=== PATIENT | male | born 1990 | race Caucasian/White ===

== ENCOUNTER 2017-10-12 00:03 | Observation (INO) | payer OTHER ==
[2017-10-12] VITALS (9 sets, daily range): BP systolic 93–129; BP diastolic 55–69; PULSE 74–113; RESP 16–20; TEMP 98–100.3; O2SAT 97–100
[~2017-10-12] VITALS: Ht 175.3 cm; Wt 66.5 kg
[~2017-10-12 00:03] MED LIST: CEPH500C3 PO
[2017-10-12] MEDS ORDERED: ONDANSETRON HCL 4 MG/2 ML VIAL IV ONE ×2 (01:15→02:45)
[2017-10-12] MEDS ORDERED: SODIUM CHLORIDE 0.9% FLUSH 10 ML FLUSH IV FLUSH PRN ×2 (01:15→03:45)
--- NOTE | 2017-10-12 01:16 | PD ---
HPI Chief Complaint: GI Complaint Time Seen by Provider: 01:07 Travel History International Travel<30 days: No Contact w/Intl Traveler<30days: No Traveled to known affect area: No History of Present Illness HPI The patient is a 27-year-old male that complains of nausea, vomiting and diarrhea since 8:30 PM tonight. He denies any foreign travel, well water ingestion, recent antibiotics her bowel problems such as regional enteritis or ulcerative colitis. He denies any blood in the stool or vomitus. He denies any fever. PFSH Past Medical History Anemia: Yes (CHILDHOOD) Anxiety: Yes Depression: Yes Chest Pain: Yes Diabetes: No Diminished Hearing: No Headaches: Yes Psychiatric: Yes (HBS INPT X1 ? PTSD PT DENIES PTSD ON 10/12/17) Immunizations Current: Yes ("I'VE GOTTEN ALMOST EVERY SHOT POSSIBLE WHILE IN THE [employer]") Seizures: No Sleep Apnea: Yes (OBSTRUCTIVE SLEEP APNEA, NO CPAP USE) Thyroid Disease: No Ulcer: No Tetanus Vaccination: < 5 Years Influenza Vaccination: No Ectopic : No Ovarian Cysts: No Dilation and Curettage (D&C): No Tubal Ligation: No Past Surgical History Section: No Hysterectomy: No Oral Surgery: Yes (WISDOM TEETH REMOVED) Other Surgery: Yes (2010) Social History Alcohol Use: Yes ("MAYBE ONE A MONTH" STATED 10/12/17) Tobacco Use: Yes (/2 PPD) Substance Use: No Allergies-Medications (Allergen,Severity, Reaction): Coded Allergies: animal dander (Unverified Allergy, Severe, 10/12/17) house dust (Unverified Allergy, Severe, 10/12/17) Reported Meds & Prescriptions Reported Meds & Active Scripts Active No Active Prescriptions or Reported Medications Review of Systems Except as stated in HPI: all other systems reviewed are Neg Physical Exam Narrative GENERAL: The patient is alert, oriented 3, moderately dehydrated appearing in moderate apparent distress with his midline epigastric discomfort and generalized abdominal cramping. His vital signs show heart rate of 110 but are otherwise normal. SKIN: Focused skin assessment warm/dry. HEAD: Atraumatic. Normocephalic. EYES: Pupils equal and round. No scleral icterus. No injection or drainage. ENT: No nasal bleeding or discharge. Mucous membranes pink and slightly dry. NECK: Trachea midline. No JVD. CARDIOVASCULAR: Regular rate and rhythm. No murmur appreciated. RESPIRATORY: No accessory muscle use. Clear to auscultation. Breath sounds equal bilaterally. GASTROINTESTINAL: Abdomen soft, with slight tenderness in the midline epigastrium to direct palpation, nondistended. Hepatic and splenic margins not palpable. No guarding or rebound is present. MUSCULOSKELETAL: No obvious deformities. No clubbing. No cyanosis. No edema. NEUROLOGICAL: Awake and alert. No obvious cranial nerve deficits. Motor grossly within normal limits. Normal speech. PSYCHIATRIC: Appropriate mood and affect; insight and judgment normal. Data Data Last Documented VS Vital Signs Date Time Temp Pulse Resp B/P (MAP) Pulse Ox O2 Delivery O2 Flow Rate FiO2 10/12/17 03:32 100 10/12/17 02:09 16 97 Room Air 10/12/17 00:07 98.0 Orders Orders Complete Blood Count With Diff (10/12/17 01:12) Comprehensive Metabolic Panel (10/12/17 01:12) Lipase (10/12/17 01:12) Urinalysis - C+S If Indicated (10/12/17 01:12) Iv Access Insert/Monitor (10/12/17 01:12) Ecg Monitoring (10/12/17 01:12) Oximetry (10/12/17 01:12) Sodium Chloride 0.9% Flush (Ns Flush) (10/12/17 01:15) Ondansetron Inj (Zofran Inj) (10/12/17 01:15) Sodium Chlor 0.9% 1000 Ml Inj (Ns 1000 M (10/12/17 01:15) Ondansetron Inj (Zofran Inj) (10/12/17 02:45) Sodium Chlor 0.9% 1000 Ml Inj (Ns 1000 M (10/12/17 02:45) Piperacil-Tazo 4.5 Gm Premix (Zosyn 4.5 (10/12/17 04:00) Trimethobenzamide Inj (Tigan Inj) (10/12/17 03:45) Place In Observation (10/12/17 ) Vital Signs (Adult) Q4H (10/12/17 03:32) Activity Oob Ad Sonali (10/12/17 03:32) Intake + Output MARIO.QSHIFT (10/12/17 03:32) Diet Regular Basic (10/12/17 Breakfast) Sodium Chlor 0.9% 1000 Ml Inj (Ns 1000 M (10/12/17 03:32) Sodium Chloride 0.9% Flush (Ns Flush) (10/12/17 03:45) Sodium Chloride 0.9% Flush (Ns Flush) (10/12/17 09:00) Ondansetron Inj (Zofran Inj) (10/12/17 03:45) Comprehensive Metabolic Panel (10/13/17 06:00) Complete Blood Count With Diff (10/13/17 06:00) Scd Bilateral/Knee High MARIO.BID (10/12/17 03:32) Joseph Bilateral/Knee High MARIO.QSHIFT (10/12/17 03:34) Acetaminophen (Tylenol) (10/12/17 03:45) Acetamin-Hydrocod 325-5 Mg ([place] 5-325 (10/12/17 03:45) Morphine Inj (Morphine Inj) (10/12/17 03:45) Docusate Sodium-Senna (Loly-Colace) (10/12/17 09:00) Magnesium Hydroxide Liq (Milk Of Magnesi (10/12/17 03:45) Sennosides (Senokot) (10/12/17 03:45) Bisacodyl Supp (Dulcolax Supp) (10/12/17 03:45) Lactulose Liq (Lactulose Liq) (10/12/17 03:45) Admit Order (Ed Use Only) (10/12/17 03:34) Metoclopramide Inj (Reglan Inj) (10/12/17 03:45) Labs Laboratory Tests Test 10/12/17 01:14 10/12/17 02:45 White Blood Count 16.2 TH/MM3 Red Blood Count 6.58 MIL/MM3 Hemoglobin 18.3 GM/DL Hematocrit 54.6 % Mean Corpuscular Volume 83.1 FL Mean Corpuscular Hemoglobin 27.8 PG Mean Corpuscular Hemoglobin Concent 33.5 % Red Cell Distribution Width 12.8 % Platelet Count 301 TH/MM3 Mean Platelet Volume 8.7 FL Neutrophils (%) (Auto) 81.3 % Lymphocytes (%) (Auto) 12.1 % Monocytes (%) (Auto) 4.1 % Eosinophils (%) (Auto) 1.3 % Basophils (%) (Auto) 1.2 % Neutrophils # (Auto) 13.1 TH/MM3 Lymphocytes # (Auto) 2.0 TH/MM3 Monocytes # (Auto) 0.7 TH/MM3 Eosinophils # (Auto) 0.2 TH/MM3 Basophils # (Auto) 0.2 TH/MM3 CBC Comment AUTO DIFF Differential Comment AUTO DIFF CONFIRMED Blood Urea Nitrogen 17 MG/DL Creatinine 1.30 MG/DL Random Glucose 123 MG/DL Total Protein 9.0 GM/DL Albumin 4.6 GM/DL Calcium Level 9.5 MG/DL Alkaline Phosphatase 71 U/L Aspartate Amino Transf (AST/SGOT) 31 U/L Alanine Aminotransferase (ALT/SGPT) 41 U/L Total Bilirubin 1.7 MG/DL Sodium Level 136 MEQ/L Potassium Level 3.6 MEQ/L Chloride Level 103 MEQ/L Carbon Dioxide Level 24.3 MEQ/L Anion Gap 9 MEQ/L Estimat Glomerular Filtration Rate 65 ML/MIN Lipase 243 U/L Urine Color YELLOW Urine Turbidity CLEAR Urine pH 5.5 Urine Specific [place] 1.020 Urine Protein NEG mg/dL Urine Glucose (UA) NEG mg/dL Urine Ketones 15 mg/dL Urine Occult Blood NEG Urine Nitrite NEG Urine Bilirubin NEG Urine Leukocyte Esterase NEG Urine RBC 0-3 /hpf Urine WBC 0-2 /hpf Urine Squamous Epithelial Cells 0-5 /hpf Urine Amorphous Sediment FEW Urine Mucus MOD /lpf Microscopic Urinalysis Comment CULT NOT INDICATED MDM Medical Decision Making Medical Screen Exam Complete: Yes Emergency Medical Condition: Yes Medical Record Reviewed: Yes Interpretation(s) The complete metabolic profile shows a GFR of 65 and total bilirubin 1.7 and total protein of 9.0 but is otherwise normal. The lipase is normal. The white count is 16,400 with 91% neutrophils and hemoglobin of 18.3 and hematocrit of 54.6. His urinalysis is normal except for 15 ketones. Differential Diagnosis Viral gastroenteritis, food poisoning, colitis, bacterial enteritis, dehydration , electrolyte disorder Narrative Course The patient is still nauseated after 24 mg of IV Zofran. We are getting him 10 mg of Reglan now. He still cannot handle by mouth liquids yet. He does have an elevated white count and he came in with a tachycardia. He appeared at least moderately dehydrated clinically. I discussed the patient with Dr. Arias , the patient will be 23 hour observation here to [place]. He has apparent hemoconcentration on the CBC with a hemoglobin of 18.3 and hematocrit of 84.6. This is very likely due to his dehydration. He also has ketones in his urine. Diagnosis Primary Impression: Gastroenteritis Additional Impression: Moderate dehydration Admitting Information Admitting Physician Requests: Observation Scripts No Active Prescriptions or Reported Meds Nader Hoffman MD Oct 12, 2017 01:16
[2017-10-12 01:23] LABS: AUTOMATED NEUTROPHIL # 13.1 TH/MM3 (1.8-7.7); BASOPHIL # 0.2 TH/MM3 (0-0.2); BASOPHIL % 1.2 % (0.0-2.0); EOSINOPHIL # 0.2 TH/MM3 (0-0.4); EOSINOPHIL % 1.3 % (0.0-4.0); HEMATOCRIT 54.6 % (39.0-51.0); LYMPH % 12.1 % (9.0-44.0); MEAN CELL VOLUME 83.1 FL (80.0-100.0); MEAN CORPUSCULAR HEMOGLOBIN 27.8 PG (27.0-34.0); MEAN CORPUSCULAR HGB CONC 33.5 % (32.0-36.0); MONO % 4.1 % (0.0-8.0); NEUT % 81.3 % (16.0-70.0); PLATELET COUNT 301 TH/MM3 (150-450); RED BLOOD COUNT 6.58 MIL/MM3 (4.50-5.90); RED CELL DISTRIBUTION WIDTH 12.8 % (11.6-17.2); WHITE BLOOD COUNT 16.2 TH/MM3 (4.0-11.0)
[2017-10-12] MEDS: SODIUM CHLOR 0.9% 1000 ML INJ 1,000 ML IV SCH ×5 (01:25→17:22)
[2017-10-12 01:34] LABS: CHLORIDE 103 MEQ/L (98-107); POTASSIUM 3.6 MEQ/L (3.5-5.1); SODIUM (NA) 136 MEQ/L (136-145)
[2017-10-12 01:38] LABS: ANION GAP 9 MEQ/L (5-15); BICARBONATE 24.3 MEQ/L (21.0-32.0); BLOOD UREA NITROGEN 17 MG/DL (7-18)
[2017-10-12 01:40] LABS: ALT (GPT) 41 U/L (12-78)
[2017-10-12 01:41] LABS: AST (GOT) 31 U/L (15-37); GLOMERULAR FILTRATION RATE 65 ML/MIN (>89)
[2017-10-12 01:42] LABS: TOTAL BILIRUBIN ADULT 1.7 MG/DL (0.2-1.0)
[2017-10-12 01:43] LABS: ALKALINE PHOSPHATASE 71 U/L (45-117)
[2017-10-12 01:44] LABS: HEMO FLAGS AUTO DIFF
[2017-10-12 02:24] LABS: SCAN/DIFF AUTO DIFF CONFIRMED
[2017-10-12] MEDS ORDERED: SODIUM CHLOR 0.9% 1000 ML INJ 1,000 ML IV SCH (02:45)
[2017-10-12 03:08] LABS: BLOOD, URINE NEG (NEG); GLUCOSE,URINE NEG (NEG); KETONE, URINE 15 mg/dL (NEG); NITRITE,URINE NEG (NEG); PH, URINE 5.5 (5.0-8.5)
[2017-10-12 03:13] LABS: URINE COLOR YELLOW (YELLW/STRAW)
[2017-10-12 03:14] LABS: COMMENT (UR) CULT NOT INDICATED; CULTURE IF INDICATED CULT NOT INDICATED; MUCUS URINE MOD /lpf (OCC); RBC, URINE 0-3 /hpf (0-3); SQUAMOUS EPITHELIAL CELL URINE 0-5 /hpf (0-5); WBC, URINE 0-2 /hpf (0-5)
[2017-10-12] MEDS ORDERED: MAGNESIUM HYDROXIDE SUSP 30 ML CUP PO PRN (03:45)
[2017-10-12] MEDS ORDERED: LACTULOSE SYRUP 20 GM/30 ML CUP PO PRN (03:45)
[2017-10-12] MEDS ORDERED: MORPHINE SULFATE 4 MG/ML INJ IV PUSH PRN (03:45)
[2017-10-12] MEDS ORDERED: TRIMETHOBENZAMIDE INJ 200 MG/2 ML VIAL IM PRN (03:45)
[2017-10-12] MEDS ORDERED: SENNOSIDES 8.6 MG TAB PO PRN (03:45)
[2017-10-12] MEDS ORDERED: BISACODYL 10 MG SUPP RECTAL PRN (03:45)
[2017-10-12] MEDS ORDERED: METOCLOPRAMIDE HCL 10 MG/2 ML VIAL IVS ONE (03:45)
[2017-10-12] MEDS ORDERED: ONDANSETRON HCL 4 MG/2 ML VIAL IVP PRN (03:45)
[2017-10-12] MEDS ORDERED: ACETAMINOPHEN 325 MG TAB PO PRN (03:45)
[2017-10-12] MEDS ORDERED: PIPERACIL-TAZO 4.5 GM PREMIX 100 ML IV SCH (04:00)
--- NOTE | 2017-10-12 08:09 | HHI.HP ---
HPI [facility] Primary Care Physician [facility] Admission Diagnosis intractable vomiting, diarrhea/dehydration Diagnoses: Chief Complaint: Nausea and vomiting and diarrhea Travel History International Travel<30 Days: No Contact w/Intl Traveler <30 Da: No Traveled to Known Affected Are: No History of Present Illness Patient is a 27-year-old gentleman with minimal past medical history. He says he arose speech there was room 4:00 on 10/11. 4 hours later he began having chills, abdominal cramping and vomiting. There was profuse and he is unable to control it. He came to the emergency room. He says he's lost several liters of fluid and felt very dry and dehydrated and dizzy. He has subjective fevers. Abdominal pain and cramping was mild and improved with vomiting and diarrhea. Since he has been observed here in the hospital he has had minimal episodes of symptoms. He has been given IV fluids and some pain medicine and felt better. Review of Systems Constitutional: COMPLAINS OF: Weight loss, Chills, DENIES: Diaphoretic episodes , Fatigue, Fever, Weight gain, Dizziness, Change in appetite, Night Sweats Endocrine: DENIES: Heat/cold intolerance, Polydipsia, Polyuria, Polyphagia Eyes: DENIES: Blurred vision, Diplopia, Eye inflammation, Eye pain, Vision loss , Photosensitivity, Double Vision Ears, nose, mouth, throat: DENIES: Tinnitus, Hearing loss, Vertigo, Nasal discharge, Oral lesions, Throat pain, Hoarseness, Ear Pain, Running Nose, Epistaxis, Sinus Pain, Toothache, Odynophagia Respiratory: DENIES: Apneas, Cough, Snoring, Wheezing, Hemoptysis, Sputum production, Shortness of breath Cardiovascular: DENIES: Chest pain, Palpitations, Syncope, Dyspnea on Exertion , PND, Lower Extremity Edema, Orthopnea, Claudication Gastrointestinal: COMPLAINS OF: Abdominal pain, Diarrhea, Nausea, Vomiting, DENIES: Black stools, Bloody stools, Constipation, Difficulty Swallowing, Anorexia Genitourinary: DENIES: Sexual dysfunction, Urinary frequency, Urinary incontinence, Urgency, Hematuria, Dysuria, Nocturia, Penile Discharge, Testicular Pain, Testicular Swelling Musculoskeletal: DENIES: Joint pain, Muscle aches, Stiffness, Joint Swelling, Back pain, Neck pain Integumentary: DENIES: Abnormal pigmentation, Nail changes, Pruritus, Rash Hematologic/lymphatic: DENIES: Bruising, Lymphadenopathy Neurologic: DENIES: Abnormal gait, Headache, Localized weakness, Paresthesias, Seizures, Speech Problems, Tremor, Poor Balance Psychiatric: DENIES: Anxiety, Confusion, Mood changes, Depression, Hallucinations, Agitation, Suicidal Ideation, Homicidal Ideation, Delusions Except as stated in HPI: all other systems reviewed are Neg Past Family Social History Past Medical History Denies Past Surgical History Sinus surgery Reported Medications Denies Allergies: Coded Allergies: animal dander (Unverified Allergy, Severe, 10/12/17) house dust (Unverified Allergy, Severe, 10/12/17) Active Ordered Medications Reviewed in the EMR Family History Father had colon cancer Mother had spina bifida Social History Patient smokes a pack a day, occasional alcohol, works at a factory, no recent travel and lives with his girlfriend Physical Exam Vital Signs Vital Signs Date Time Temp Pulse Resp B/P (MAP) Pulse Ox O2 Delivery O2 Flow Rate FiO2 10/12/17 04:20 10/12/17 04:15 100.3 96 18 108/69 (82) 97 10/12/17 03:32 100 10/12/17 02:09 113 16 127/67 (87) 97 Room Air 10/12/17 00:50 102 10/12/17 00:07 98.0 110 18 129/60 (83) 100 Physical Exam GENERAL: This is a well-nourished, well-developed patient, in no apparent distress. SKIN: No rashes, ecchymoses or lesions. Cool and dry. HEAD: Atraumatic. Normocephalic. No temporal or scalp tenderness. EYES: Pupils equal round and reactive. Extraocular motions intact. No scleral icterus. No injection or drainage. ENT: Dry mucous membranes, Nose without bleeding, purulent drainage or septal hematoma. Throat without erythema, tonsillar hypertrophy or exudate. Uvula midline. Airway patent. NECK: Trachea midline. No JVD or lymphadenopathy. Supple, nontender, no meningeal signs. CARDIOVASCULAR: Sinus tachycardia without murmurs, gallops, or rubs. RESPIRATORY: Clear to auscultation. Breath sounds equal bilaterally. No wheezes , rales, or rhonchi. GASTROINTESTINAL: Abdomen soft, non-tender, nondistended. No hepato-splenomegaly , or palpable masses. No guarding. MUSCULOSKELETAL: Extremities without clubbing, cyanosis, or edema. No joint tenderness, effusion, or edema noted. No calf tenderness. Negative Homans sign bilaterally. NEUROLOGICAL: Awake and alert. Cranial nerves II through XII intact. Motor and sensory grossly within normal limits. Five out of 5 muscle strength in all muscle groups. Normal speech. Laboratory Laboratory Tests Test 10/12/17 01:14 10/12/17 02:45 White Blood Count 16.2 Red Blood Count 6.58 Hemoglobin 18.3 Hematocrit 54.6 Mean Corpuscular Volume 83.1 Mean Corpuscular Hemoglobin 27.8 Mean Corpuscular Hemoglobin Concent 33.5 Red Cell Distribution Width 12.8 Platelet Count 301 Mean Platelet Volume 8.7 Neutrophils (%) (Auto) 81.3 Lymphocytes (%) (Auto) 12.1 Monocytes (%) (Auto) 4.1 Eosinophils (%) (Auto) 1.3 Basophils (%) (Auto) 1.2 Neutrophils # (Auto) 13.1 Lymphocytes # (Auto) 2.0 Monocytes # (Auto) 0.7 Eosinophils # (Auto) 0.2 Basophils # (Auto) 0.2 CBC Comment AUTO DIFF Differential Comment AUTO DIFF CONFIRMED Blood Urea Nitrogen 17 Creatinine 1.30 Random Glucose 123 Total Protein 9.0 Albumin 4.6 Calcium Level 9.5 Alkaline Phosphatase 71 Aspartate Amino Transf (AST/SGOT) 31 Alanine Aminotransferase (ALT/SGPT) 41 Total Bilirubin 1.7 Sodium Level 136 Potassium Level 3.6 Chloride Level 103 Carbon Dioxide Level 24.3 Anion Gap 9 Estimat Glomerular Filtration Rate 65 Lipase 243 Urine Color YELLOW Urine Turbidity CLEAR Urine pH 5.5 Urine Specific [place] 1.020 Urine Protein NEG Urine Glucose (UA) NEG Urine Ketones 15 Urine Occult Blood NEG Urine Nitrite NEG Urine Bilirubin NEG Urine Leukocyte Esterase NEG Urine RBC 0-3 Urine WBC 0-2 Urine Squamous Epithelial Cells 0-5 Urine Amorphous Sediment FEW Urine Mucus MOD Microscopic Urinalysis Comment CULT NOT INDICATED Result Diagram: 10/12/1711310/12/17113 Caprini VTE Risk Assessment Caprini VTE Risk Assessment: No/Low Risk (score <= 1) Caprini Risk Assessment Model Point Value = 1 Point Value = 2 Point Value = 3 Point Value = 5 Age 41-60 Minor surgery BMI > 25 kg/m2 Swollen legs Varicose veins or History of unexplained or recurrent spontaneous Oral contraceptives or hormone replacement Sepsis (< 1 month) Serious lung disease, including pneumonia (< 1 month) Abnormal pulmonary function Acute myocardial infarction Congestive heart failure (< 1 month) History of inflammatory bowel disease Medical patient at bed rest Age 61-74 Arthroscopic surgery Major open surgery (> 45 min) Laparoscopic surgery (> 45 min) Malignancy Confined to bed (> 72 hours) Immobilizing plaster cast Central venous access Age >= 75 History of VTE Family history of VTE Factor V Leiden Prothrombin [id number] Lupus anticoagulant Anticardiolipin antibodies Elevated serum homocysteine Heparin-induced thrombocytopenia Other congenital or acquired thrombophilia Stroke (< 1 month) Elective arthroplasty Hip, pelvis, or leg fracture Acute spinal cord injury (< 1 month) Prophylaxis Regimen Total Risk Factor Score Risk Level Prophylaxis Regimen 0-1 Low Early ambulation 2 Moderate Order ONE of the following: *Sequential Compression Device (SCD) *Heparin 5000 units SQ BID 3-4 Higher Order ONE of the following medications: *Heparin 5000 units SQ TID *Enoxaparin/Lovenox 40 mg SQ daily (WT < 150 kg, CrCl > 30 mL/min) *Enoxaparin/Lovenox 30 mg SQ daily (WT < 150 kg, CrCl > 10-29 mL/min) *Enoxaparin/Lovenox 30 mg SQ BID (WT < 150 kg, CrCl > 30 mL/min) AND/OR *Sequential Compression Device (SCD) 5 or more Highest Order ONE of the following medications: *Heparin 5000 units SQ TID (Preferred with Epidurals) *Enoxaparin/Lovenox 40 mg SQ daily (WT < 150 kg, CrCl > 30 mL/min) *Enoxaparin/Lovenox 30 mg SQ daily (WT < 150 kg, CrCl > 10-29 mL/min) *Enoxaparin/Lovenox 30 mg SQ BID (WT < 150 kg, CrCl > 30 mL/min) AND *Sequential Compression Device (SCD) Assessment and Plan Problem List: (1) Moderate dehydration ICD Code: E86.0 - Dehydration Status: Acute Plan: Continue aggressive hydration, follow electrolyte (2) Gastroenteritis ICD Code: K52.9 - Noninfective gastroenteritis and colitis, unspecified Status: Acute Plan: Overall improved, DC IV antibiotics and follow clinically Marisol Lynn MD Oct 12, 2017 08:09
[2017-10-12] MEDS: ACETAMINOPHEN/HYDROcodone 325 MG/5 MG TAB PO PRN ×3 (08:29→21:24)
[2017-10-12] MEDS: SODIUM CHLORIDE 0.9% FLUSH 10 ML FLUSH IV FLUSH SCH ×2 (09:00→21:00)
[2017-10-12] MEDS ORDERED: DOCUSATE SODIUM 50 MG/SENNA 8.6 MG TAB PO SCH (09:00)
--- NOTE | 2017-10-12 22:20 | EKG ---
Date Performed: 10/12/2017 Time Performed: 00:27:38 PTAGE: 27 years EKG: SINUS TACHYCARDIA ABNORMAL RHYTHM ECG NO PREVIOUS TRACING DOCTOR: Jacques Flor Interpretating Date/Time 10/12/2017 22:19:19
[2017-10-13] VITALS: BP 93/67; PULSE 74; RESP 20; TEMP 98.1; O2SAT 98
[2017-10-13] MEDS: SODIUM CHLOR 0.9% 1000 ML INJ 1,000 ML IV SCH ×2 (00:06→06:42)
[2017-10-13 04:00] VITALS: BP 108/70; PULSE 76; RESP 20; TEMP 97.7; O2SAT 98
[2017-10-13] MEDS: ACETAMINOPHEN/HYDROcodone 325 MG/5 MG TAB PO PRN (06:42)
[2017-10-13 08:00] VITALS: BP 110/63; PULSE 70; RESP 18; TEMP 97.8; O2SAT 98
[2017-10-13] MEDS: SODIUM CHLORIDE 0.9% FLUSH 10 ML FLUSH IV FLUSH SCH (08:36)
[2017-10-13 09:27] LABS: AUTOMATED NEUTROPHIL # 2.6 TH/MM3 (1.8-7.7); BASOPHIL % 0.3 % (0.0-2.0); EOSINOPHIL # 0.2 TH/MM3 (0-0.4); EOSINOPHIL % 4.3 % (0.0-4.0); HEMATOCRIT 40.7 % (39.0-51.0); HEMO FLAGS DIFF FINAL; LYMPH % 28.1 % (9.0-44.0); LYMPHOCYTE # 1.3 TH/MM3 (1.0-4.8); MEAN CELL VOLUME 81.7 FL (80.0-100.0); MEAN CORPUSCULAR HEMOGLOBIN 27.2 PG (27.0-34.0); MEAN CORPUSCULAR HGB CONC 33.3 % (32.0-36.0); MONO % 11.6 % (0.0-8.0); NEUT % 55.7 % (16.0-70.0); PLATELET COUNT 150 TH/MM3 (150-450); RED BLOOD COUNT 4.98 MIL/MM3 (4.50-5.90); WHITE BLOOD COUNT 4.6 TH/MM3 (4.0-11.0)
[2017-10-13 09:57] LABS: ALT (GPT) 24 U/L (12-78); ANION GAP 6 MEQ/L (5-15); BICARBONATE 25.4 MEQ/L (21.0-32.0); CHLORIDE 109 MEQ/L (98-107); GLOMERULAR FILTRATION RATE 121 ML/MIN (>89); POTASSIUM 3.6 MEQ/L (3.5-5.1); SODIUM (NA) 140 MEQ/L (136-145)
[2017-10-13 10:07] LABS: ALKALINE PHOSPHATASE 47 U/L (45-117); AST (GOT) 18 U/L (15-37); BLOOD UREA NITROGEN 6 MG/DL (7-18)
--- NOTE | 2017-10-13 10:13 | HHI.DCPOC ---
Discharge Care Plan Diagnosis: (1) Gastroenteritis (2) Moderate dehydration Goals to Promote Your Health * To prevent worsening of your condition and complications * To maintain your health at the optimal level Directions to Meet Your Goals Take your medications as prescribed Follow your dietary instruction Follow activity as directed Keep your appointments as scheduled Take your immunizations and boosters as scheduled If your symptoms worsen call your PCP, if no PCP go to Urgent Care Center or Emergency Room Smoking is Dangerous to Your Health. Avoid second hand smoke Call the 24-hour hour crisis hotline for domestic abuse at Marisol Lynn MD Oct 13, 2017 10:13
[2017-10-13] MEDS ORDERED: PROM25TA10 PO (10:43)
--- NOTE | 2017-10-13 12:19 | HHI.DS ---
Discharge Summary Admission Date Oct 12, 2017 at 03:35 Discharge Date: Oct 13, 2017 Admitting Diagnosis intractable vomiting, diarrhea/dehydration (1) Moderate dehydration ICD Code: E86.0 - Dehydration Status: Acute (2) Gastroenteritis ICD Code: K52.9 - Noninfective gastroenteritis and colitis, unspecified Status: Acute Procedures None Brief History - From Admission Patient is a 27-year-old gentleman with minimal past medical history. He says he arose speech there was room 4:00 on 10/11. 4 hours later he began having chills, abdominal cramping and vomiting. There was profuse and he is unable to control it. He came to the emergency room. He says he's lost several liters of fluid and felt very dry and dehydrated and dizzy. He has subjective fevers. Abdominal pain and cramping was mild and improved with vomiting and diarrhea. Since he has been observed here in the hospital he has had minimal episodes of symptoms. He has been given IV fluids and some pain medicine and felt better. CBC/BMP: 10/13/17 0845 10/13/17 0845 Significant Findings Laboratory Tests Test 10/12/17 01:14 10/12/17 02:45 10/13/17 08:45 White Blood Count 16.2 TH/MM3 (4.0-11.0) Red Blood Count 6.58 MIL/MM3 (4.50-5.90) Hemoglobin 18.3 GM/DL (13.0-17.0) Hematocrit 54.6 % (39.0-51.0) Neutrophils (%) (Auto) 81.3 % (16.0-70.0) Neutrophils # (Auto) 13.1 TH/MM3 (1.8-7.7) Random Glucose 123 MG/DL (74-106) Total Protein 9.0 GM/DL (6.4-8.2) 5.8 GM/DL (6.4-8.2) Total Bilirubin 1.7 MG/DL (0.2-1.0) Estimat Glomerular Filtration Rate 65 ML/MIN (>89) Urine Ketones 15 mg/dL (NEG) Urine Mucus MOD /lpf (OCC) Monocytes (%) (Auto) 11.6 % (0.0-8.0) Eosinophils (%) (Auto) 4.3 % (0.0-4.0) Blood Urea Nitrogen 6 MG/DL (7-18) Albumin 2.8 GM/DL (3.4-5.0) Calcium Level 7.9 MG/DL (8.5-10.1) Chloride Level 109 MEQ/L (98-107) PE at Discharge GENERAL: This is a well-nourished, well-developed patient, in no apparent distress. CARDIOVASCULAR: Regular rate and rhythm without murmurs, gallops, or rubs. RESPIRATORY: Clear to auscultation. Breath sounds equal bilaterally. No wheezes , rales, or rhonchi. GASTROINTESTINAL: Abdomen soft, non-tender, nondistended. Normal active bowel sounds MUSCULOSKELETAL: Extremities without clubbing, cyanosis, or edema. NEURO: Alert & Oriented x4 to person, place, time, situation. Moves all ext x4 Pt update on day of discharge Patient seen today in follow-up, nausea is better. Diarrhea is improved. Discharge plans discussed with patient and nursing team Hospital Course Patient is a 27-year-old gentleman with minimal medical history who had suggested some bad food and had subsequent nausea and vomiting with diarrhea. Symptoms improved greatly and his admission the patient's discomfort improved. He did well with Phenergan and was hydrated Pt Condition on Discharge: Good Discharge Disposition: Discharge Home Discharge Time: <= 30 minutes Discharge Instructions DIET: Follow Instructions for: As Tolerated, No Restrictions Activities you can perform: Regular-No Restrictions New Medications: Promethazine (Phenergan) 25 Mg Tablet 25 MG PO Q6H PRN for NAUSEA OR VOMITING, #30 TAB 0 Refills Marisol Lynn MD Oct 13, 2017 12:19
== END 2017-10-13 11:06 | disposition home or self-care (01) ==
LOC: PHED 00:03 → PHEDA 03:35 → PH3B 04:20
PROVIDERS: ADMIT Hospitalist; ATTEND Hospitalist
DX: E86.0 Dehydration (principal); K52.9 Noninfective gastroenteritis and colitis, unspecified; R00.0 Tachycardia, unspecified; G47.33 Obstructive sleep apnea (adult) (pediatric); F41.9 Anxiety disorder, unspecified; F32.9 Major depressive disorder, single episode, unspecified
CPT/HCPCS: 80053; 81001; 83690; 85025; 93005; 96361; 96365; 96375; 96376; 99285; G0378; J2405; J2543; J2765; J7030